=== PATIENT | male | born 1975 | race Caucasian/White ===

== ENCOUNTER 2025-05-31 12:58 | Outpatient (CLI) | payer OTHER, SELFPAY ==
--- OUTSIDE RECORDS SUMMARY | 2025-05-31 13:04 | XMS_ITS | Clinical Summary ---
Author Organization [facility] Address [address] [place] [address] Phone Care Team Providers Care Marketing Secretary Name Role Phone Unavailable Primary Care Provider Unavailabl e Allergies No known active allergies Medications No known medications Social History Tobacco Use Types Packs/Day Years Used Date Smoking Tobacco: Never Assessed Sex and Gender Information Value Date Recorded Sex Assigned at Not on file Legal Sex Male 9:39 PM CDT Gender Identity Not on file Sexual Orientation Not on file Plan of Treatment Health Maintenance Due Date Last Done Comments Hepatitis C Virus (HCV) Screening 1975 TdaP Immunization 1975 Hepatitis B Immunization (1 of 3 - 19+ 3-dose series) 1994 Colonoscopy 2020 Colorectal Cancer Screening 2020 Influenza Immunization (#1) 2024 SARS-COV-2 Immunization ( season) 2024 Cologuard 2025 Immunochemical Fecal Occult Blood 2025 Respiratory Syncytial Virus (RSV) Immunization (Adult) (1 - 1-dose 75+ series) 2050 Meningococcal Immunization (ACWY) Aged Out No longer eligible based on patient's age to complete this topic Pneumococcal Immunization Combined Aged Out No longer eligible based on patient's age to complete this topic Rotavirus Immunization Aged Out No lo nger eligible based on patient's age to complete this topic
--- OUTSIDE RECORDS SUMMARY | 2025-05-31 13:04 | XMS_ITS | Clinical Summary ---
Author Organization [facility] [address] Address [address] [place] [id number] Care Team Providers Care Speaking Unit Assembler Name Role Phone No, Physician Primary Care Provider [phone] Allergies No known active allergies Medications predniSONE (DELTASONE) 10 mg tablet Take 4 tabs days 1-3, take 3 tabs day 4-6, take 2 tabs day 7-9, take 1 tab days 10-14 32 tablet 05/21/2023 Active triamcinolone (KENALOG) 0.1 % cream Apply to affected area 1-2 times daily as needed. Avoid face and groin. 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 Gender Identity Not on file Sexual Orientation Not on file Obstetrics History Last Filed Vital Signs Vital Sign Reading Time Taken Comments Blood Pressure 145/90 05/21/2023 3:13 PM CDT Pulse 70 05/21/2023 3:13 PM CDT Temperature 36.9 C (98.4 F) 05/21/2023 3:13 PM CDT Respiratory Rate 18 05/21/2023 3:13 PM CDT Oxygen Saturation 99% 05/21/2023 3:13 PM CDT Inhaled Oxygen Concentration - - Weight 99.5 kg (219 lb 4.8 oz) 05/21/2023 3:13 P M CDT Height 182.9 cm (6') 05/21/2023 3:13 PM CDT Body Mass Index 29.74 05/21/2023 3:13 PM CDT Plan of Treatment Health Maintenance Due Date Last Done Comments Colon Cancer Screening-Colonoscopy 1975 Depression Screening 1975 Hepatitis C Screening 1975 Prostate Cancer Screening-PSA 1975 DTaP/Tdap/Td Vaccine (1 - Tdap) 1986 Hepatitis B Screening 1993 Regular Well Visit/Exam 18-64 1993 Zoster Vaccine (1 of 2) 2025 Influenza Vaccine (Season Ended) 2025 Pneumococcal vaccine <65 Aged Out No longer eligible based on patient's age to complete this topic Insurance [facility] H[facility]PPO Address: [place] [address] Care Teams Speaking Unit Assembler Relationship Specialty Start Date End Date No, Physician PCP - General 05/21/23
--- OUTSIDE RECORDS SUMMARY | 2025-05-31 13:04 | XMS_ITS | Referral Summary ---
Author Organization [facility] [address] Address [address] [place] [id number] Care Team Providers Care Makeup Instructor Name Role Phone No, Physician Primary Care Provider [phone] Allergies No known active allergies Medications predniSONE (DELTASONE) 10 mg tablet Take 4 tabs days 1-3, take 3 tabs day 4-6, take 2 tabs day 7-9, take 1 tab days 10-14 32 tablet 05/21/2023 Active triamcinolone (KENALOG) 0.1 % cream Apply to affected area 1-2 times daily as needed. Avoid face and groin. 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
--- OUTSIDE RECORDS SUMMARY | 2025-05-31 13:04 | XMS_ITS | Data Portability ---
Author Organization [place] [facility], Main Office Address [address] [place] [address] Care Team Providers Care Farm Machinery Mechanic Name Role Phone CHAYO SHEIKH Primary Care Provider CHAYO SHEIKH Referring Provider Assessment Encounter Date Assessment Date Assessment LastModified by Organization Details LastModified Time 04/06/2025 04/06/2025 This note is dictated and transcribed by [employer]. [employer] Site Manager variances may occur. Despite proofreading, typographical errors may occur. Occasional wrong-word or '[id number]' substitutions may have occurred due to the inherent limitations of voice recording. Read the chart carefully and recognize, using context, where substitutions have occurred. [email or web address] Not available 04/06/2025 14:06:11 Plan of Treatment Reminders Order Date Submit Date Provider Last Modified By Organization Details Last Modified Time Details Appointments Establi shed Patient 15 2024 03:45P Giovanny Son DPM Not available Not available Not available Any 15 2024 01:00P Giovanny Sheikh MD Not available Not available Not available Lab PSA, serum or plasma 2024 025 [email or web address] [facility], [address], [place], [address], 04/12/2025 17:07:31 lipid panel, serum 2024 025 [email or web address] [facility], [address], [place], [address], 04/12/2025 17:07:30 uric acid, serum or plasma [address] (Lab), [address] [place], [address], 01/27/2025 09:37:47 CBC w/ auto diff [address] (Lab), [address] [place], [address], 01/27/2025 09:37:47 lipid panel, serum 2024 025 DEISY [facility] (Lab), [address] [place], [address], 01/24/2025 17:34:59 CMP, serum or plasma [address] (Lab), [address] [place], [address], 01/27/2025 09:37:47 Referral podiatr ist referra l 2024 025 [place] [address] Kai Son DPM, [address] [facility], [address], [place], [address], 04/12/2025 09:33:42 Procedures colonos copy screeni ng (PROC) - Please call patient to sandoval baker appoint ment. Thank you. 2024 025 [email or web address] Gustavo Lobo MD, [address] [place], [address], 04/20/2025 08:35:36 Surgeries None recorde d. Imaging electro myogram + nerve conduct ion study 2024 025 [email or web address] [facility] (Cardiology & Emg), [facility] [address] [place] [address], [phone], 05/29/2025 08:24:29 CT, coronar y calcium score - Please call patient to sandoval avitia 2024 025 [facility], [address] [place] [address] , [address], [place], [address], 05/11/2025 18:06:53 LDCT, chest, for lung cancer screeni misael - Please call patient to sandoval avitia OON w/ [facility] 2024 025 [email or web address] [facility], [address] [place] [address] , [address], [place], [address], 02/22/2025 08:46:16 Medication Orders meloxic am 15 mg tablet 2024 025 DEISY [id number], [address], [place], [address], 01/20/2025 11:03:47 Medrol (Hector) 4 mg tablets in a dose pack 2024 025 [email or web address] [id number], [address], [place], [address], 03/15/2025 11:18:09 Patient TargetsNo targets recorded. Patient InstructionsNo instructions recorded. 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 Problems Name Problem SNOMED Code Status Onset Date Resolution Date Notes Provider Name and Address Organization Details Recorded Time Plantar fasciiti s of right foot 91006961158 489041 Active 2024 Referred to podiatry 03/15/25 AALIYAH Araiza [place] [facility] [email or web address] 5 08:06:38 Smoker 38549212 Active 2024 AALIYAH Araiza [place] [facility] [email or web address] 5 08:05:42 Overweig ht 904739359 Active 2024 AALIYAH Araiza [facility] [employer] [facility] 08:05:36 Cigarett e smoker 59516176 Completed 202403/21/2025 AALIYAH Araiza, [facility] [employer] [facility] 5 08:05:49 Hyperlip idemia 98712854 Active 2024 AALIYAH Araiza, [facility] [employer] [facility] 5 08:05:31 Paresthe marguerite 18203221 Active 2024 Kai Son DPM [address], [address], [place], [address], [facility] [employer] [facility] 5 14:05:09 Pain in right foot 06125785123 9107 Active 2024 Kai Son DPM [address], [address], [place], [address], [facility] [employer] [facility] 14:05:35 Metatars algia of right foot 35525869179 9100 Active 2024 Kai Son DPM [address], [address], [place], [address], [facility] [employer] [facility] 14:05:51 Problem Notes None recorded. Procedures Surgical History Date Name Laterality Status Provider Name and Address Organization Details Recorded Time 11/30/18 80 tonsillectomy completed Solange Ho [facility] [employer] [facility] 01/20/2025 10:39:26 Imaging Results None recorded. Procedure Notes None recorded. Medical Equipment None Reported. Allergies No known drug allergies Medications Name Sig Start Date Stop Date Status Note LastModified by Organization Details LastModified Time meloxicam 15 mg tablet TAKE 1 TABLET BY MOUTH EVERY DAY 2024 active Not Available Not Available Not Avai lable methylpredn isolone 4 mg tablets in a dose pack TAKE 6 TABLETS ON DAY 1 DIRECTED ON PACKAGE AND DECREASE BY 1 TAB EACH DAY FOR A TOTAL OF 6 DAYS 03/15 completed Not Available Not Available Not Available Vitals Date Recorded Body mass index (BMI) Body height Provider Name and Address Organization Details Last Updated DateTime 01/20/2025 28.9 kg/m2 182.88 cm Chayo Sheikh MD [address] [facility], [facility] [address], [place], [address], [employer] [facility] [employer] 01/20/2025 11:01:32 Date Recorded Body weight Heart rate Oxygen saturation Oxygen saturation in Arterial blood by Pulse oximetry Body temperature Systolic blood pressure Diastolic blood pressure Provider Name and Address Organization Details Last Updated DateTime 5 50339.1 7 g 66 /min 98 % 98 % 97.8 [degF] 128 mm[Hg] 82 mm[Hg] Solange ryan [employer] 5 10:43:14 Date Recorded Body height Body mass index (BMI) Body weight Body temperature Heart rate Oxygen saturation Oxygen saturation in Arterial blood by Pulse oximetry Systolic blood pressure Diastolic blood pressure Provider Name and Address Organization Details Last Updated DateTime 5 182.88 cm 28.1 kg/m2 24424.6 2 g 97.4 [degF] 64 /min 98 % 98 % 118 mm[Hg] 86 mm[Hg] Solange ryan [employer] 5 11:17:55 Date Recorded Body height Body mass index (BMI) Body weight Heart rate Respiratory rate Oxygen saturation Oxygen saturation in Arterial blood by Pulse oximetry Systolic blood pressure Diastolic blood pressure Provider Name and Address Organization Details Last Updated DateTime 5 182.88 cm 27.4 kg/m2 26351.6 6 g 63 /min 14 /min 98 % 98 % 129 mm[Hg] 82 mm[Hg] [place] [employer] [facility] [employer] 5 11:36:05 Social History Question Answer Notes LastModified by Organizat ion Details LastModified Time Tobacco Smoking Status Current Every Day Smoker Solange barroso [employer] [facility] [employer] 01/20/2025 10:35:04 How Many Years Have You Consumed Alcohol? 35 Information not available 01/20/2025 Is Blood Transfusion Acceptable In An Emergency? Yes Information not available 01/20/2025 What Is Your Level Of Caffeine Consumption? Occasional Information not available 01/20/2025 What Type Of Diet Are You Following? REGULAR Information not available 01/20/2025 What Is The Highest Grade Or Level Of School You Have Completed Or The Highest Degree You Have Received? BI09031-2 Information not available 01/20/2025 How Many Days Of Moderate To Strenuous Exercise, Like A Brisk Walk, Did You Do In The Last 7 Days? 5 Information not available 01/20/2025 Are There Any Guns Present In Your Home? Yes Information not available 01/20/2025 Do You Use Insect Repellent Routinely? No Information not available 01/20/2025 What Was The Date Of Your Most Recent Tobacco Screening? 04/06/2025 Information not available 04/06/2025 How Many Children Do You Have? 1 Information not available 01/20/2025 Have You Ever Been Counseled For Unhealthy Alcohol Use? No Information not available 04/06/2025 Do You Have Any Pets? Yes Information not available 01/20/2025 Do You Use Protection During Sex? No Information not available 01/20/2025 What Is Your Relationship Status? Information not available 01/20/2025 Do You Use Your Seat Belt Or Car Seat Routinely? Yes Information not available 01/20/2025 Are You Sexually Active? Yes Information not available 01/20/2025 Do You Have Smoke And Carbon Monoxide Detectors In Your Home? Yes Information not available 01/20/2025 At What Age Did You Start Smoking Tobacco? 16 Information not available 01/20/2025 Are You Passively Exposed To Smoke? Yes Information no t available 01/20/2025 Are There Any Smokers In Your House? Yes Information not available 01/20/2025 How Much Tobacco Do You Smoke? 1 PPW Information not available 01/20/2025 Do You Use Sunscreen Routinely? Yes Information not available 01/20/2025 Has Tobacco Cessation Counseling Been Provided? No Information not available 04/06/2025 How Many Years Have You Smoked Tobacco? 35 Information not available 01/20/2025 Do You Have Any Dietary Restrictions? No Information not available 01/20/2025 Sex: Male Functional Status Question Answer Note LastModified by Organizat ion Details LastModified Time Do you use any illicit or recreational drugs? No Information not available 01/20/2025 Do you or have you ever used any other forms of tobacco or nicotine? No Information not available 04/06/2025 What is your level of alcohol consumption? Occasional Information not available 01/20/2025 Are you currently employed? 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 Moderate Information not available 01/20/2025 Mental Status Question Answer Note LastModified by Organization D etails LastModified Time Do you feel stressed (tense, restless, nervous, or anxious, or unable to sleep at night)? [id number] Information not available 01/20/2025 Family History Relationship Description Onset Age of this Age Resolved Age Notes LastModified by Organization Details LastModified Time Maternal Uncle Diabetes mellitus Not available 2024 12:18:00 Father Cerebrovascu lar accident Not available 06/2025 12:18:08 Father Hypertensive disorder Not available 2024 12:18:28 Father Heart disease Not available 2024 12:18:37 Father Thrombosis of blood vessel Not available 2024 12:18:49 Unspecified Relation Arthritis Not available 025 12:18:18 Medical History Condition Response HIGH CHOLESTEROL / HYPERLIPIDEMIA Y Past Encounters Encounter ID Performer Location Encounter Start Date Encounter Closed Date Diagnosis/Indication Diagnosis SNOMED-CT Code Diagnosis ICD10 Code Diagnosis Note [id number] Chayo Sheikh MD [facility] [address] [place] [address] 01/20/2025 10:15:29 01/20/2025 11:24:21 Plantar fasciitis of right foot 4700715176 0897381 M72.2 Adult heal th examination 844591407 Z00.00 Smoker 50439167 F17.200 advised to quit Overweight 597201591 E66 .3 Cigarette smoker 8102670 7 F17.210 Screening for malignant neoplasm of colon 130371191 Z12.11 [id number] Chayo Sheikh MD [facility] [address] [place] [address] 03/15/2025 11:06:54 03/15/2025 12:34:02 Adult health examination 702297375 Z00.00 Colonoscop y- has referral Smoker 27815542 F17.200 advised to quit, educated, Overweight 024874707 E66 .3 lose more Hyperlipidemia 02165148 E78.5 diet discussedn umbers are very high, watch diet and recheck in 4 months Screening for malignant neoplasm of prostate 790558379 Z12.5 Plantar fa sciitis of right foot 2204026437 9552701 M72.2 High risk of cardiovascular disease 1390306426 09043 Z91.89 will get calcium score [id number] Kai Son DPM [facility] [place] [address] [place] [address] 04/06/2025 11:24:34 05/04/2025 16:12:56 Paresthesia 87335069 R20.2 Pain in right foot [address]38[address] 93327 M79.671 Metatarsal kevon of right foot 2710270952 79654 M77.41 dancer's pad dispensed todayrice therapycon tinue supportive shoe gearNo strenuous activities Health Concerns Section Related Observation LastModified by Organization Detai ls LastModified Time None Recorded Concern Status LastModified by Organization Details LastModified Time None Recorded Advance Directives Directive None Recorded Payers Insurance Date Sequence Insurance Name Policy Number Policy Muhammad Covered Member ID Muhammad Member ID Guarantor Name 05/08/2025 1 [facility] [id number] Jaylan Ricks [id number] Jaylan Ricks Notes Date Note Type Note Provider Name and Address Organization Details Recorded Time 01/20/2025 text/html Pt is here today for a new patient syed. Its been a while since he has seen a doctor. Pt is here with his Pt is fasting [facility] pt is having pain and numbness in his right foot mainly on the bottom but goes to the toes. Its starting to get tolerable but bother him a lot while at work. onset august 2024 ( Pt compares it to carpal tunnel for the feeling )no injury Smoker- 1ppd x 35 yrs, advised to quit Overweight- has some sleep apnea symptoms, will check back and evaluate Chayo Sheikh MD [address], [address], [place], [address], [employer] 01/20/2025 11:06:37 03/15/2025 text/html Pt was a new pt [facility] Today is his 2 month f/u. Pt is here with his Go over labsstill need LDCT at [facility] Pt is fasting [facility] *STILL pt is having pain and numbness/pressure in his right foot mainly on the bottom but goes to the toes. Its can be tolerable but bothers him a lot while at work. onset august 2024 ( Pt compares it to carpal tunnel for the feeling )no injury Smoker- 1ppd x 35 yrs, advised to quit Overweight- has some sleep apnea symptoms, Chayo Sheikh MD [address], [address], [place], [address], [employer] 03/15/2025 12:20:45 04/06/2025 text/html . Patient is a 50-year-old male who presents the office with complaints of numbness and discomfort to his right foot. Patient states the pain started on 09/18/2024. Patient states that walking causes worsening of the symptoms. Patient describes the pain level is 7/10. Patient describes it as aching, sharp, constant, intermittent. Patient denies any injury to the foot. Patient states it does seem to improve when he is off his foot. Patient denies any other complaints. Kai Son DPM [address], [address], [place], [address], [employer] 05/03/2025 12:27:21
--- NOTE | 2025-05-31 14:00 | NEURO_ITS ---
Impression: # Complains of right foot numbness. No history of back pain or surgery. ? # Right peroneal neuropathy. ? # Mildly abnormal needle/EMG exam. ? # Clinical correlation recommended. ?Nerve Conduction Studies ?Stim Site NR Peak (ms) P-T Amp (?V) Site1 Site2 Delta-P (ms) Dist (cm) Bryant (m/s) Left Sup Fibular Anti Sensory (Ant Lat Mall) 14 cm ? 3.0 0.9 14 cm Ant Lat Mall 3.0 16.0 53 Right Sup Fibular Anti Sensory (Ant Lat Mall)??? NO RESPONSE 14 cm NR 14 cm Ant Lat Mall 16.0 Left Sural Anti Sensory (Lat Mall) Calf ? 4.4 7.4 Calf Lat Mall 4.4 16.0 36 Right Sural Anti Sensory (Lat Mall) Calf ? 3.6 8.7 Calf Lat Mall 3.6 16.0 44 ?Stim Site NR Onset (ms) O-P Amp (mV) Site1 Site2 Delta-0 (ms) Dist (cm) Bryant (m/s) Left Peroneal Motor (Vastus Med) Ankle ? 3.7 1.4 Popit Ankle 9.5 41.0 43 Popit ? 13.2 1.6 Right Peroneal Motor (Vastus Med) Ankle ? 6.1 0.3 Popit Ankle 9.4 41.0 44 Popit ? 15.5 0.8 Left Tibial Motor (Abd Nevarez Brev) Ankle ? 5.1 7.4 Knee Ankle 8.5 41.0 48 Knee ? 13.6 4.6 Right Tibial Motor (Abd Nevarez Brev) Ankle ? 4.1 3.2 Knee Ankle 9.0 42.0 47 Knee ? 13.1 2.8 Electromyography ?Side Muscle Nerve Root Ins Act Fibs Amp Dur Recrt Comment Right AntTibialis Dp Br Fibular L4-5 Nml Nml Nml Nml Nml Right Gastroc Tibial S1-2 Nml Nml Nml Nml Nml Right Fibularis Long Sup Br Fibular L5-S1 Nml Nml Nml Nml Nml Right Flex Dig Long Tibial L5-S2 Nml Nml Nml Nml Nml Right Ext Dig Brev Dp Br Fibular L5, S1 Nml Nml Nml Nml Nml Right QuadratusFem QuadFemoris L4-5, S1 Nml Nml Nml Nml Nml Left AntTibialis Dp Br Fibular L4-5 Nml Nml Nml Nml Nml Left Gastroc Tibial S1-2 Nml Nml Nml Nml Nml Left Fibularis Long Sup Br Fibular L5-S1 Nml Nml Nml Nml Nml Left Flex Dig Long Tibial L5-S2 Nml Nml Nml Nml Nml Left Ext Dig Brev Dp Br Fibular L5, S1 Nml Nml Nml <12ms +1 Left QuadratusFem QuadFemoris L4-5, S1 Nml Nml Nml Nml Nml
== END 2025-05-31 12:59 | disposition home or self-care (01) ==
PROVIDERS: PCP Internal Medicine; Visit Provider Podiatrist Foot & Ankle Surgery
DX: R20.2 Paresthesia of skin (principal); R94.131 Abnormal electromyogram [EMG]
CPT/HCPCS: 95886; 95910